=== PATIENT | female | born 1990 | race Caucasian/White ===

== ENCOUNTER 2018-03-04 14:20 | Emergency (ER) | payer OTHER ==
--- NOTE | 2018-03-04 14:26 | PDOC ---
History of Present Illness - General Chief Complaint: Respiratory Stated Complaint: FEVER Time Seen by Provider: 03/04/18 14:26 - History of Present Illness Initial Comments: 28 year old female with no PMH presenting with fever, muscle aches, and chills for the past 5 days. States that fevers have improved but she is still having sweats at night and the day time. Patient denies any cough, chest pain, urinary symptoms, back pain, discharge, or other symptoms. 03/04/18 17:37 Past History - Past Medical History Allergies/Adverse Reactions: Allergies Allergy/AdvReac Type Severity Reaction Status Date / Time No Known Allergies Allergy Verified 03/04/18 14:22 Home Medications: Ambulatory Orders NK [No Known Home Medication] 03/04/18 Review of Systems - Review of Systems Constitutional: Yes: Chills, Fever HEENTM: No: Blurred Vision, Tearing Respiratory: No: Cough, Shortness of Breath, Wheezing Cardiac (ROS): No: Chest Pain, Edema, Irregular Heart Rate ABD/GI: No: Constipated, Diarrhea, Nausea : No: Dysuria, Discharge Musculoskeletal: No: Back Pain, Gout, Joint Pain Integumentary: No: Bruising, Change in Color, Flushing Neurological: No: Headache, Numbness, Paresthesia, Tingling Psychiatric: No: Anxiety, Depression Endocrine: No: Flushing, Increased Urine Hematologic/Lymphatic: No: Anemia, Blood Clots, Easy Bleeding *Physical Exam - Physical Exam General Appearance: Yes: Nourished, Appropriately Dressed. No: Apparent Distress HEENT: positive: EOMI, [place], Normal ENT Inspection, Normal Voice Neck: positive: Trachea midline, Normal Thyroid, Supple. negative: Tender, Rigid Respiratory/Chest: positive: Lungs Clear, Normal Breath Sounds. negative: Chest Tender, Respiratory Distress, Accessory Muscle Use Cardiovascular: positive: Regular Rhythm, Regular Rate Gastrointestinal/Abdominal: positive: Normal Bowel Sounds, Flat, Soft. negative : Tender Lymphatic: negative: Adenopathy, Tenderness Musculoskeletal: positive: Normal Inspection. negative: CVA Tenderness, Decreased Range of Motion Extremity: positive: Normal Capillary Refill, Normal Inspection, Normal Range of Motion. negative: Tender Integumentary: positive: Normal Color, Dry, Warm Neurologic: positive: Fully Oriented, Alert, Normal Mood/Affect, Normal Response , Motor Strength 5/5 Medical Decision Making - Medical Decision Making Healthy 28 year old female presenting with viral type symptoms including myalgias, fevers, and sweats. Patient appears well overall and is only complaining of remaining chills/ sweats. I explained to the patient that this is day 5 of viral-appearing symptoms and that she shoudl be better earnest few more days. We did check a UA and U preg which were negative. VSS on discharge and patient feeling well. She was DC'd with follow up instructions and return precautions. 03/04/18 17:53 *DC/Admit/Observation/Transfer Diagnosis at time of Disposition: Viral syndrome - Discharge Dispostion Disposition: HOME Condition at time of disposition: Good Decision to Admit order: No - Referrals Referrals: [facility] [place] [facility] [place] [Provider Group] - Patient Instructions Printed Discharge Instructions: DI for Viral Syndrome Additional Instructions: You have no infection in your urine and you are not . It seems as if you had the flu and are recovering. The flue medication will not help you at this point. You will likely improve in the next few days. Please use Tylenol and Ibuprofen for your muscle aches and fevers. Please follow up with your primary care doctor if you have any more questions or follow up at our clinic on this sheet if you don't have one. Please return to the ED if you have any new or worsening symptoms. - Post Discharge Activity
--- NOTE | 2018-03-04 14:32 | PDOC ---
Attending Attestation - Resident Resident Name: Carolynn Carter - HPI HPI: 03/04/18 15:48 Pt presents to the ED complaining of a three day history of fevers and mylagias accompanied by hot flashes and sweats which soak through her clothes. Fevers and myalgias have now resolved, but patient presents today because the hot flashes and sweats are persistent. Patient denies any other complaints. - Physicial Exam PE: 03/04/18 16:01 Agree with resident exam. Patient is alert, awake and oriented and in no acute distress. Abdomen is non tender, non distended, without guarding rebound. - Medical Decision Making 03/04/18 16:03 Pt presents to the ED complaining of hot flashes and sweats, and fever and myalgias that have now resolved. Denies other complaints. Most likely resolving viral syndrome. Will discharge home with follow up with her PMD.
[2018-03-04 14:44] VITALS: BP 108/67; PULSE 90; TEMP 97.9; BMI 23.3
[2018-03-04 15:01] LABS: HCG,QUALITATIVE URINE Negative
[2018-03-04 15:08] LABS: URINE APPEARANCE Clear; URINE BILIRUBIN Negative (NEGATIVE); URINE COLOR Yellow; URINE GLUCOSE (UA) Negative (NEGATIVE); URINE KETONE Negative (NEGATIVE); URINE LEUK ESTERASE TRACE (NEGATIVE); URINE NITRITE Negative (NEGATIVE); URINE PROTEIN Negative (NEGATIVE); URINE UROBILINOGEN 0.2 (0.2-1.0)
[2018-03-04 17:16] LABS: URINE RBC 0-2 /hpf (0-3)
[2018-03-04 17:17] LABS: URINE BACTERIA FEW /hpf (NEGATIVE)
== END 2018-03-04 15:41 | disposition home or self-care (01) ==
LOC: FER 14:20
DX: B34.9 Viral infection, unspecified (principal)
CPT/HCPCS: 81003; 81015; 84703; 87086; 99282-25